=== PATIENT | female | born 1985 | race Caucasian/White ===

== ENCOUNTER 2018-12-19 09:33 | Day surgery (SDC) | payer OTHER, SELFPAY ==
[2018-12-19] VITALS (7 sets, daily range): BP systolic 89–122; BP diastolic 48–74; PULSE 59–78; RESP 14–18; TEMP 36.2–37.2; O2SAT 93–98; BMI 23.1
--- NOTE | 2018-12-19 | PATH_ITS ---
[facility] Accession Number: [id number] . 01 Material submitted: . sigmoid colon - SIGMOID BIOPSIES . 02 Diagnosis: Sigmoid Colon, Biopsies: Mild to focally moderate active colitis; please see comment. Negative for granulomata, dysplasia or malignancy. V/12/20/2018 . 02 Comment: The histologic findings raise a differential diagnosis including infection, drug/toxin-induced injury and, in the appropriate clinical setting, idiopathic inflammatory bowel disease. . 02 Electronically signed: . Franky Garcia MD, PhD, Pathologist NPI- [id number] . 01 Gross description: . SIGMOID BIOPSIES: Received in formalin are multiple fragment(s) of rodrigues, soft tissue measuring 0.1 x 0.1 x 0.1 cm to 0.3 x 0.3 x 0.3 cm which is entirely submitted and submitted entirely in 1 cassette(s) /DMC /DMC . 02 Pathologist provided ICD-10: K52.9 . 02 CPT . 533384 Performed at: 01 [facility] [address] [facility], [place], [place] [id number] MD Hayder Santos MD Phone: [phone] Performed at: 02 [facility] [address] [place], [place] [id number] MD Bernadine Fraire MD Phone: [phone]
--- NOTE | 2018-12-19 12:09 | PM.PREOP ---
Pre-operative Note Interval Note History & Physical reviewed/Exam performed by Physician: Yes Changes to H&P: No ASA Class (for procedural sedation): I
[2018-12-19] MEDS: fentaNYL 250 MCG/5 ML INJ IV (12:54)
--- NOTE | 2018-12-19 12:54 | PM.OP.ENDO ---
Operative Date/Time/Diagnoses Date of procedure: 12/19/18 Time of procedure: 12:54 Pre-op diagnosis: Rectal bleeding Post-op diagnosis: other (Colitis) Procedure & Clinicians Study performed: Diagnostic colonoscopy Same procedure as scheduled: Yes Indications: 33yo otherwise healthy female with several weeks of pain and blood per rectum. Stool studies have been unremarkable. Here for diagnostic colonoscopy. Surgeon: Geraldine Melchor Procedure Notes SCOAP/Timeout: 1222 Procedure in detail: After obtaining informed consent, the patient was brought to the GI suite and placed in the left lateral decubitus position on the examination table. After placement of appropriate monitors, the patient was given incremental doses of Versed and Fentanyl until an appropriate level of sedation was achieved. A time out was held per SCOAP protocol. A digital rectal examination was performed and did not reveal any masses or obstructing lesions. The colonoscope was gently passed into the patient's anus and the entire colon navigated to the level of the cecum with minimal difficulty. Prep was adequate. Once in the cecum, the ileocecal valve was unable to be cannulated. The scope was slowly withdrawn being sure to go before and beyond all mucosal folds and prominences as able to get a thorough examination. No masses or polyps are noted. Other findings include colitis through sigmoid and rectum identified by moderate diffuse erythema of the mucosa. Random biopsies of this are taken with cold forceps. At the level of the rectal vault, the scope was retroflexed and the internal anal canal was examined. The scope was straightened and air aspirated from the colon. The instrument was removed from the patient's body and the procedure was concluded. The patient was allowed to awaken from sedation without difficulty and taken to the post-anesthesia care unit in good condition. Scope withdrawal time: 13 min Sedation minutes: 30 Findings: colitis (moderate, sigmoid colon and rectum- biopsies sent) Specimen(s): other (colitis in sigmoid colon) Complications: none Recommendations: Colonscopy in 10 years (pending pathology) Follow up: weeks Disposition: PACU
[2018-12-19] MEDS: MIDAZOLAM 5 MG/5 ML VIAL IV (12:56)
== END 2018-12-19 14:03 | disposition home or self-care (01) ==
PROVIDERS: Visit Provider Surgery
PROC: 0DJD8ZZ Inspection of Lower Intestinal Tract, Via Natural or Artificial Opening Endoscopic (ICD-10-PCS; CPT 45378; principal; 2018-12-19 11:45)
DX: K52.9 Noninfective gastroenteritis and colitis, unspecified (principal); K64.4 Residual hemorrhoidal skin tags
CPT/HCPCS: 45380; 99152; 99153; J2250; J3010